=== PATIENT | male | born 1965 | race Caucasian/White ===

== ENCOUNTER 2017-12-22 10:04 | Emergency (ER) | payer OTHER ==
[~2017-12-22] VITALS: Ht 188 cm; Wt 101.1 kg
[2017-12-22 10:11] VITALS: TEMP 36.5; Ht 188 cm; Wt 101.1 kg
[2017-12-22] MEDS ORDERED: LORA-741 PO (10:43)
[2017-12-22] MEDS ORDERED: LISI-729 PO (10:43)
--- NOTE | 2017-12-22 10:53 | EMERGENCY ROOM VISIT NOTE ---
History Report prepared by Eboni: Luis Davila Under the Supervision of: Dr. Samantha Caba D.O. First contact with patient: 10:36 Chief Complaint: OTHER COMPLAINT Stated Complaint: LEFT SIDE NUMBNESS History of Present Illness The patient is a 52 year old male with a history of hypertension and diverticulitis who presents to the Emergency Room with complaints of episodes of left-sided numbness and tingling that started 3 days ago. He states that he first started getting the episodes of numbness on his left leg, that usually starts with a pain in his left thigh. The patient says that more recently the numbness has been spreading up to his left arm, and most recently, to the left side of his face. He notes that all these symptoms are only on the left side of his body. He says that when he has the episodes, he has had associated weakness. For instance, he has been dropping items out of his left hand. The patient states the episodes do not last too long, and yesterday morning, his episode was resolved with 3 Aspirin. He notes that this morning, he started having an episode around 4 hours ago, but it has not gone away which is unusual for him, even with 3 Aspirin. He also notes that the face tingling is worse than it has ever been. He states that the episodes come on more often in the morning. The patient called his family doctor, and was told to come here. The patient adds that for the past month, he has had fluttering in his chest that is completely separate from the tingling. He denies any chest pain. He says that the fluttering episodes have occurred every day, and usually last about 30 seconds. The patient states that he does not feel any current fluttering. He denies any extremity swelling or skin color changes. He takes Lisinopril daily. The patient states that he drinks 3 shots of vodka per night as well as 2 beers. He used to smoke marijuana. Source of History: patient Onset: 3 days ago Position: other (left side of body) Quality: numbness, other (tingling) Timing: other (episodes) Associated Symptoms: + weakness (left side of body), No chest pain Note: Associated symptoms: Chest fluttering episodes. Denies extremity swelling or skin color changes. Review of Systems See HPI for pertinent positives & negatives. A total of 10 systems reviewed and were otherwise negative. Past Medical & Surgical Medical Problems: (1) HTN (hypertension) Family History No pertinent family history Social History Smoking Status: Never Smoker Alcohol Use: heavy Drug Use: none Housing Status: lives with family Current/Historical Medications Scheduled Lisinopril (Zestril), Unknown Dose PO DAILY Scheduled PRN Lorazepam (Ativan), 0.5 MG PO DAILY PRN for Anxiety Allergies Coded Allergies: No Known Allergies (Unverified , 12/22/17) Physical Exam Vital Signs Date Time Temp Pulse Resp B/P (MAP) Pulse Ox O2 Delivery O2 Flow Rate FiO2 12/22/17 13:50 61 18 138/88 98 Room Air 12/22/17 13:41 59 12/22/17 11:53 84 18 154/101 98 Room Air 12/22/17 10:47 63 12/22/17 10:11 36.5 66 20 181/112 98 Room Air Physical Exam GENERAL: alert, anxious appearing, well nourished, no distress, non-toxic EYE EXAM: normal conjunctiva, PERRL and EOM's grossly intact OROPHARYNX: no exudate, no erythema, lips, buccal mucosa, and tongue normal and mucous membranes are moist NECK: supple, no nuchal rigidity, no adenopathy, non-tender LUNGS: Clear to auscultation. Normal chest wall mechanics HEART: no murmurs, S1 normal and S2 normal ABDOMEN: abdomen soft, non-tender, normo-active bowel sounds, no masses, no rebound or guarding. BACK: Back is symmetrical on inspection and there is no deformity, no midline tenderness, no CVA tenderness. SKIN: no rashes and no bruising UPPER EXTREMITIES: upper extremities are grossly normal. LOWER EXTREMITIES: No pitting edema. NEURO EXAM: Fine tremor. Subjective sensory difference on testing of left face, left upper extremity, and left lower extremity. Normal sensorium, cranial nerves II-XII grossly intact, normal speech, no gross weakness of arms, no gross weakness of legs. No drift. Finger to nose intact. Gross sensation intact. Medical Decision & Procedures ER Provider Diagnostic Interpretation: Radiology results have been interpreted by the radiologist and reviewed by me. CHEST ONE VIEW PORTABLE CLINICAL HISTORY: 52 years-old Male presenting with palpitations. TECHNIQUE: Portable upright AP view of the chest was obtained. COMPARISON: None. FINDINGS: Cardiomediastinal silhouette normal. Lungs and pleural spaces clear. Osseous structures normal. Upper abdomen normal. IMPRESSION: 1. No acute cardiopulmonary disease. Electronically signed by: Alvin Hanson M.D. 12/22/2017 11:18 AM Dictated Date/Time: 12/22/2017 11:18 AM BRAIN WITHOUT CONTRAST HISTORY: Neuropathy. Headache. Mental status change. left sided numbness TECHNIQUE: Multiplanar multisequence MRI of the brain was performed without the use of contrast. COMPARISON STUDY: None. FINDINGS: There are no areas of restricted diffusion to suggest acute infarction. The midline structures are intact. The paranasal sinuses are clear. The mastoid air cells are clear. The ventricles and sulci are within normal limits for age. There is no mass, hematoma, midline shift. The major vascular flow-voids at the skull base are well maintained. Several very small foci of increased signal consistent with the patient's history of chronic headache versus minimal chronic small vessel change. IMPRESSION: No acute intracranial abnormality. No evidence for an acute ischemic insult. Minimal chronic small vessel change. The above report was generated using voice recognition software. It may contain grammatical, syntax or spelling errors. Electronically signed by: Gregorio Gaytan M.D. 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 TECHNIQUE: 3 views of the orbits were obtained. COMPARISON: None. FINDINGS: No radiopaque intraorbital foreign body. Bony orbits grossly intact. Paranasal sinuses grossly clear. Visualized portion of the calvarium intact. IMPRESSION: No intraorbital metallic foreign body to preclude MRI exam. Electronically signed by: Alvin Hanson M.D. 12/22/2017 11:55 AM Dictated Date/Time: 12/22/2017 11:55 AM Laboratory Results 12/22/17 10:30 Red Blood Count 4.66, Mean Corpuscular Volume 93.6, Mean Corpuscular Hemoglobin 33.7, Mean Corpuscular Hemoglobin Concent 36.0, Mean Platelet Volume 8.8, Neutrophils (%) (Auto) 67.8, Lymphocytes (%) (Auto) 17.6, Monocytes (%) (Auto) 13.0, Eosinophils (%) (Auto) 0.4, Basophils (%) (Auto) 0.6, Neutrophils # (Auto ) 3.24, Lymphocytes # (Auto) 0.84, Monocytes # (Auto) 0.62, Eosinophils # (Auto ) 0.02, Basophils # (Auto) 0.03 12/22/17 10:30 Test 12/22/17 10:30 12/22/17 11:08 12/22/17 11:12 White Blood Count 4.78 K/uL (4.8-10.8) Red Blood Count 4.66 M/uL (4.7-6.1) Hemoglobin 15.7 g/dL (14.0-18.0) Hematocrit 43.6 % (42-52) Mean Corpuscular Volume 93.6 fL (80-100) Mean Corpuscular Hemoglobin 33.7 pg (25-34) Mean Corpuscular Hemoglobin Concent 36.0 g/dl (32-36) Platelet Count 267 K/uL (130-400) Mean Platelet Volume 8.8 fL (7.4-10.4) Neutrophils (%) (Auto) 67.8 % Lymphocytes (%) (Auto) 17.6 % Monocytes (%) (Auto) 13.0 % Eosinophils (%) (Auto) 0.4 % Basophils (%) (Auto) 0.6 % Neutrophils # (Auto) 3.24 K/uL (1.4-6.5) Lymphocytes # (Auto) 0.84 K/uL (1.2-3.4) Monocytes # (Auto) 0.62 K/uL (0.11-0.59) Eosinophils # (Auto) 0.02 K/uL (0-0.5) Basophils # (Auto) 0.03 K/uL (0-0.2) RDW Standard Deviation 42.6 fL (36.4-46.3) RDW Coefficient of Variation 12.5 % (11.5-14.5) Immature Granulocyte % (Auto) 0.6 % Immature Granulocyte # (Auto) 0.03 K/uL (0.00-0.02) Prothrombin Time 10.4 SECONDS (9.0-12.0) Prothromb Time International Ratio 1.0 (0.9-1.1) Anion Gap 6.0 mmol/L (3-11) Est Creatinine Clear Calc Drug Dose 104.7 ml/min Estimated GFR () 93.7 Estimated GFR (Non- 80.9 BUN/Creatinine Ratio 14.2 (10-20) Calcium Level 9.0 mg/dl (8.5-10.1) Phosphorus Level 2.4 mg/dl (2.5-4.9) Magnesium Level 2.0 mg/dl (1.8-2.4) Total Bilirubin 0.8 mg/dl (0.2-1) Aspartate Amino Transf (AST/SGOT) 29 U/L (15-37) Alanine Aminotransferase (ALT/SGPT) 45 U/L (12-78) Alkaline Phosphatase 76 U/L (45-117) Troponin I < 0.015 ng/ml (0-0.045) Total Protein 7.5 gm/dl (6.4-8.2) Albumin 4.0 gm/dl (3.4-5.0) Globulin 3.5 gm/dl (2.5-4.0) Albumin/Globulin Ratio 1.1 (0.9-2) Thyroid Stimulating Hormone (TSH) 0.808 uIu/ml (0.300-4.500) Urine Opiates Screen NEG (NEG) Urine Methadone, Qualitative NEG (NEG) Urine Barbiturates NEG (NEG) Urine Phencyclidine (PCP) Level NEG (NEG) Ur Amphetamine/Methamphetamine NEG (NEG) MDMA (Ecstasy) Screen NEG (NEG) Urine Benzodiazepines Screen NEG (NEG) Urine Cocaine Metabolite NEG (NEG) Urine Marijuana (THC) NEG (NEG) Ethyl Alcohol mg/dL < 3.0 mg/dl (0-3) Laboratory results per my review. Medications Administered Medications (Trade) Dose Ordered Sig/Jay Route Start Time Stop Time Status Last Admin Dose Admin Sodium Chloride 500 ml @ 999 mls/hr Q31M STAT IV 12/22/17 10:54 12/22/17 11:24 DC 12/22/17 11:25 999 MLS/HR ECG Per My Interpretation Indication: weakness Rate (beats per minute): 61 Rhythm: normal sinus Findings: no acute ischemic change, no ectopy, other (normal intervals, normal axis) ED Course 1042: The patient was evaluated in room C4. A complete history and physical exam was performed. 1054: NSS 500 ml @ 999 mls/hr IV. 1339: Upon reevaluation, the patient is resting comfortably. I discussed the findings and the treatment plan with the patient. He verbalizes agreement and understanding. He was discharged home. Medical Decision Differential Diagnosis includes but is not limited to dehydration, stroke, anemia, hypoglycemia, hyponatremia, hypernatremia, urinary tract infection, pneumonia, bronchitis, sepsis, gastroenteritis, additional abdominal pathology, metabolic abnormalities, infections, electrolyte abnormality, cardiac dysrhythmia, thyroid dysfunction, pulmonary embolism, gastrointestinal, as well as others were entertained. Pt well appearing, labs and imaging reassuring. Discussed with pt close f/u with PCP, decreased etoh consumption, possible etiology of pain/paresthesias and well as fluttering. No dysrhythmias noted on telemetry. Sx intermittent and not consistent with tia/cva. MRI negative. No obvious infectious etiology or electrolyte abnormality. No evidence of thyroid storm. Doubt other acute vascular etiology. Doubt acs. History not suggestive of musculoskeletal dz or radiculopathy. Pt does not appear to be in active etoh withdrawal or DT's. DIscussed with him close f/u with PCP and need for additional neurology evaluation. Discussed decreasing etoh consumption and risks of milieu therapist etoh use. Discussed sx to watch/return for, he verbalized understanding and was agreeable with plan. Medication Reconcilliation Current Medication List: was personally reviewed by me Blood Pressure Screening Patient's blood pressure: Elevated blood pressure Blood pressure disposition: Referred to PCP Impression Primary Impression: Paresthesia Additional Impression: Hypertension Scribe Attestation The scribe's documentation has been prepared under my direction and personally reviewed by me in its entirety. I confirm that the note above accurately reflects all work, treatment, procedures, and medical decision making performed by me. Departure Information Dispostion Home / Self-Care Referrals No Doctor, Assigned (PCP) Patient Instructions My [facility] Additional Instructions Please call and follow-up with your family doctor and make an appointment to see neurology as soon as possible. Please continue to cut back on your caffeine consumption as well as your alcohol use. Please drink plenty of water. Please take your regular medications as prescribed. If you have worsening or more persistent numbness or tingling, weakness in arm or leg, difficulty speaking, headaches, dizziness, chest pain, trouble breathing, fevers , you have any other new concerns, please return the emergency room. Problem Qualifiers Additional Impression: Hypertension Hypertension type: essential hypertension Qualified Codes: I10 - Essential ( primary) hypertension
[2017-12-22] MEDS ORDERED: SODIUM CHLORIDE 0.9% 500ML 500 ML IV STA (10:54)
[2017-12-22 11:19] LABS: BASO % 0.6 %; BASO ABS # 0.03 K/uL (0-0.2); EOS % 0.4 %; EOS ABS # 0.02 K/uL (0-0.5); HEMATOCRIT 43.6 % (42-52); HEMOGLOBIN 15.7 g/dL (14.0-18.0); IG# 0.03 K/uL (0.00-0.02); LYMPH % 17.6 %; LYMPH ABS # 0.84 K/uL (1.2-3.4); MEAN CELL VOLUME 93.6 fL (80-100); MEAN CORPUSCULAR HEMOGLOBIN 33.7 pg (25-34); MEAN PLATELET VOLUME 8.8 fL (7.4-10.4); MONO ABS # 0.62 K/uL (0.11-0.59); NEUT % 67.8 %; NEUT ABS # 3.24 K/uL (1.4-6.5); PLATELET COUNT 267 K/uL (130-400); RED CELL DISTRIBUTION WIDTH CV 12.5 % (11.5-14.5); RED CELL DISTRIBUTION WIDTH SD 42.6 fL (36.4-46.3); WHITE BLOOD COUNT 4.78 K/uL (4.8-10.8)
--- NOTE | 2017-12-22 11:20 | DIAGNOSTIC IMAGING REPORT ---
CHEST ONE VIEW PORTABLE CLINICAL HISTORY: 52 years-old Male presenting with palpitations. TECHNIQUE: Portable upright AP view of the chest was obtained. COMPARISON: None. FINDINGS: Cardiomediastinal silhouette normal. Lungs and pleural spaces clear. Osseous structures normal. Upper abdomen normal. IMPRESSION: 1. No acute cardiopulmonary disease. Electronically signed by: Alvin Hanson M.D. 12/22/2017 11:18 AM Dictated Date/Time: 12/22/2017 11:18 AM
[2017-12-22 11:26] LABS: ALT/SGPT 45 U/L (12-78); AST/SGOT 29 U/L (15-37); BLOOD UREA NITROGEN 15 mg/dl (7-18); CARBON DIOXIDE 25 mmol/L (21-32); CREATININE 1.06 mg/dl (0.60-1.40); GLUCOSE 98 mg/dl (70-99); POTASSIUM 4.1 mmol/L (3.5-5.1); SODIUM 135 mmol/L (136-145)
[2017-12-22 11:37] LABS: ALKALINE PHOSPHATASE 76 U/L (45-117); PHOSPHORUS 2.4 mg/dl (2.5-4.9); TOTAL PROTEIN 7.5 gm/dl (6.4-8.2)
--- NOTE | 2017-12-22 11:57 | DIAGNOSTIC IMAGING REPORT ---
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 TECHNIQUE: 3 views of the orbits were obtained. COMPARISON: None. FINDINGS: No radiopaque intraorbital foreign body. Bony orbits grossly intact. Paranasal sinuses grossly clear. Visualized portion of the calvarium intact. IMPRESSION: No intraorbital metallic foreign body to preclude MRI exam. Electronically signed by: Alvin Hanson M.D. 12/22/2017 11:55 AM Dictated Date/Time: 12/22/2017 11:55 AM
--- NOTE | 2017-12-22 12:59 | DIAGNOSTIC IMAGING REPORT ---
BRAIN WITHOUT CONTRAST HISTORY: Neuropathy. Headache. Mental status change. left sided numbness TECHNIQUE: Multiplanar multisequence MRI of the brain was performed without the use of contrast. COMPARISON STUDY: None. FINDINGS: There are no areas of restricted diffusion to suggest acute infarction. The midline structures are intact. The paranasal sinuses are clear. The mastoid air cells are clear. The ventricles and sulci are within normal limits for age. There is no mass, hematoma, midline shift. The major vascular flow-voids at the skull base are well maintained. Several very small foci of increased signal consistent with the patient's history of chronic headache versus minimal chronic small vessel change. IMPRESSION: No acute intracranial abnormality. No evidence for an acute ischemic insult. Minimal chronic small vessel change. The above report was generated using voice recognition software. It may contain grammatical, syntax or spelling errors. Electronically signed by: Gregorio Gaytan M.D. 12/22/2017 12:57 PM Dictated Date/Time: 12/22/2017 12:55 PM
[2017-12-22 13:50] VITALS: BP 138/88; PULSE 61; O2SAT 98
== END 2017-12-22 14:04 | disposition home or self-care (01) ==
LOC: C.EDB 10:05 → C.EDC 14:04
DX: R20.2 Paresthesia of skin (principal); I10 Essential (primary) hypertension; Z79.899 Other long term (current) drug therapy